=== PATIENT | male | born 1985 | race American Indian/Alaskan Native ===

== ENCOUNTER 2019-09-01 14:23 | Emergency (ER) | payer SELFPAY ==
[2019-09-01 14:37] VITALS: BP 142/83
[2019-09-01] MEDS ORDERED: IPRATROPIUM/ALBUTEROL SULFATE 3 ML AMPUL.NEB IH ONE (14:38)
[2019-09-01] MEDS ORDERED: predniSONE 20 MG TAB PO ONE (14:38)
--- NOTE | 2019-09-01 14:38 | Emergency Department Report ---
Blank Doc - Documentation Documentation: 34-year-old male that presents with SOB and wheezing. Has been out of his ast hma medications. This initial assessment/diagnostic orders/clinical plan/treatment(s) is/are subject to change based on patient's health status, clinical progression and re- assessment by fellow clinical providers in the ED. Further treatment and workup at subsequent clinical providers discretion. Patient/guardians urged not to elope from the ED as their condition may be serious if not clinically assessed and managed. Initial orders include: 1- Patient sent to [facility] for further evaluation and treatment 2- breathing treatment/steroids
--- NOTE | 2019-09-01 16:00 | Emergency Department Report ---
ED Asthma HPI - General Chief Complaint: Adult Asthma Stated Complaint: MED REFILL/WILDER Time Seen by Provider: 09/01/19 14:37 Source: patient Mode of arrival: Ambulatory Limitations: No Limitations - History of Present Illness Initial Comments: Mr. Hudson is a 34-year-old male who has history of asthma who requests medication refill. He recently lost his job. Consequently he does not have health insurance. He is unable to see his primary care physician without health insurance. He requests refill of albuterol nebulizer solution, Symbicort. He also has had nasal congestion aa for the past 3 days. He denies shortness of breath or wheezing at this time. He has had these symptoms intermittently. MD Complaint: "asthma attack" -: Gradual, week(s) (several weeks) Asthma History: history of frequent attac, history of prior ED visit Severity: mild Context: ran out of meds Associated Symptoms: other (nasal congestion) - Related Data Previous Rx's Medication Instructions Recorded Last Taken Type ALBUTEROL Inhaler (OR & NICU) 2 puff IH QID PRN #1 device 09/01/19 Unknown Rx [ProAir HFA Inhaler] ALBUTEROL NEB's [Proventil 0.083% 1 neb IH Q6H PRN #1 box 09/01/19 Unknown Rx NEBS] Budesonide/Formoterol Fumarate 2 inh IH BID #1 hfa.aer.ad 09/01/19 Unknown Rx [Symbicort 160-4.5 Mcg Inhaler] Loratadine 10 mg PO DAILY 30 Days #30 capsule 09/01/19 Unknown Rx predniSONE [Deltasone] 3 tab PO QDAY 4 Days #12 tab 09/01/19 Unknown Rx Allergies Allergy/AdvReac Type Severity Reaction Status Date / Time No Known Allergies Allergy Unverified 09/01/19 14:38 ED Review of Systems ROS: Stated complaint: MED REFILL/WILDER Other details as noted in HPI Comment: All other systems reviewed and negative Constitutional: malaise. denies: fever ENT: congestion Respiratory: shortness of breath, wheezing Cardiovascular: denies: chest pain ED Past Medical Hx - Past Medical History Previous Medical History?: Yes Hx Hypertension: Yes Hx Asthma: Yes - Surgical History Past Surgical History?: No - Social History Smoking Status: Never Smoker Substance Use Type: None - Medications Home Medications: Home Medications Medication Instructions Recorded Confirmed Last Taken Type ALBUTEROL Inhaler (OR & NICU) 2 puff IH QID PRN #1 device 09/01/19 Unknown Rx [ProAir HFA Inhaler] ALBUTEROL NEB's [Proventil 0.083% 1 neb IH Q6H PRN #1 box 09/01/19 Unknown Rx NEBS] Budesonide/Formoterol Fumarate 2 inh IH BID #1 hfa.aer.ad 09/01/19 Unknown Rx [Symbicort 160-4.5 Mcg Inhaler] Loratadine 10 mg PO DAILY 30 Days #30 capsule 09/01/19 Unknown Rx predniSONE [Deltasone] 3 tab PO QDAY 4 Days #12 tab 09/01/19 Unknown Rx ED Physical Exam - General Limitations: No Limitations General appearance: alert, in no apparent distress, other (appears well speaking talkative full word sentences without difficulty ) - Head Head exam: Present: atraumatic, normocephalic - Eye Eye exam: Present: normal appearance - ENT ENT exam: Present: mucous membranes moist - Neck Neck exam: Present: normal inspection, full ROM - Respiratory Respiratory exam: Present: normal lung sounds bilaterally. Absent: respiratory distress, wheezes, rales, rhonchi - Cardiovascular Cardiovascular Exam: Present: regular rate, normal rhythm, normal heart sounds. Absent: systolic murmur, diastolic murmur, rubs, gallop - GI/Abdominal GI/Abdominal exam: Present: soft, normal bowel sounds. Absent: distended, tenderness, guarding, rebound - Rectal Rectal exam: Present: deferred - Extremities Exam Extremities exam: Present: normal inspection - Back Exam Back exam: Present: normal inspection - Neurological Exam Neurological exam: Present: alert, oriented X3 - Psychiatric Psychiatric exam: Present: normal affect, normal mood - Skin Skin exam: Present: warm, dry, intact, normal color. Absent: rash ED Course Vital Signs 09/01/19 14:29 Temperature 98.4 F Pulse Rate 72 Respiratory 16 Rate Blood Pressure 142/83 O2 Sat by Pulse 97 Oximetry ED Medical Decision Making - Medical Decision Making mild aspirin exacerbation, refills of albuterol nebulizer solution, albuterol MDI and Symbicort provided Nasal congestion attributed to URI versus allergic rhinitis prescribed loratadine Critical care attestation.: If time is entered above; I have spent that time in minutes in the direct care of this critically ill patient, excluding procedure time. ED Disposition Clinical Impression: Asthma exacerbation, Sinus congestion Disposition: DC-01 TO HOME OR SELFCARE Is pt being admited?: No Does the pt Need Aspirin: No Condition: Stable Instructions: Asthma (ED) Prescriptions: predniSONE [Deltasone] 3 tab PO QDAY 4 Days #12 tab Loratadine 10 mg PO DAILY 30 Days #30 capsule ALBUTEROL Inhaler (OR & NICU) [ProAir HFA Inhaler] 2 puff IH QID PRN #1 device PRN Reason: Shortness Of Breath ALBUTEROL NEB's [Proventil 0.083% NEBS] 1 neb IH Q6H PRN #1 box PRN Reason: shortness of breath/wheezing Budesonide/Formoterol Fumarate [Symbicort 160-4.5 Mcg Inhaler] 2 inh IH BID #1 hfa.aer.ad Referrals: [facility] [Outside] - 3-5 Days Forms: Work/School Release Form(ED)
== END 2019-09-01 18:36 | disposition home or self-care (01) ==
LOC: ED 14:23
DX: J45.901 Unspecified asthma with (acute) exacerbation (principal); I10 Essential (primary) hypertension; Z79.899 Other long term (current) drug therapy
CPT/HCPCS: 94644; 99283; J7512

== ENCOUNTER 2019-09-27 21:40 | Emergency (ER) | payer SELFPAY ==
[2019-09-27] MEDS ORDERED: IPRATROPIUM/ALBUTEROL SULFATE 3 ML AMPUL.NEB IH ONE (22:03)
[2019-09-27] MEDS ORDERED: predniSONE 20 MG TAB PO ONE (22:03)
--- NOTE | 2019-09-27 22:05 | Event Note ---
ED Screening Note Date of service: 09/27/19 Time: 22:01 ED Screening Note: This is a 34 y.o. M. that presents to the ER with cough, congestion, and rhinorrhea 4-5 days. PMH of asthma Patient states he ran out of inhaler, nebulizer solution, and prednisone. This initial assessment/diagnostic orders/clinical plan/treatment(s) is/are subject to change based on patients health status, clinical progression and re- assessment by fellow clinical providers in the ED. Further treatment and workup at subsequent clinical providers discretion. Patient/guardian urged not to elope from the ED as their condition may be serious if not clinically assessed and managed. Initial orders include: Duoneb Prednisone
[2019-09-28] MEDS ORDERED: ALBUTEROL 2.5 MG/3 ML NEBU IH ONE (01:28)
[2019-09-28] MEDS ORDERED: IPRATROPIUM 0.02% NEBU 2.5 ML IH ONE (01:28)
[2019-09-28] MEDS ORDERED: predniSONE 20 MG TAB PO ONE (01:28)
--- NOTE | 2019-09-28 01:34 | Emergency Department Report ---
HPI - General Chief Complaint: Adult Asthma Time Seen by Provider: 09/27/19 22:00 - HPI HPI: Room 29 The pt is a 34 y/o M p/w a cc of URI and asthma. 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 The pt states he's had a cold with his sxs including cough and rhinnorhea x 5 days. The pt states whenever he has an URI his asthma exacerbates. The pt states he's been wheezing x 5 days and doesnt have any asthma meds at home. Pt denies fever. + sick contacts at home c same sxs ED Past Medical Hx - Past Medical History Previous Medical History?: Yes Hx Hypertension: Yes Hx Asthma: Yes - Surgical History Past Surgical History?: No - Family History Family history: no significant - Social History Smoking Status: Current Every Day Smoker (11/29 ppd) Substance Use Type: Alcohol (occ) - Medications Home Medications: Home Medications Medication Instructions Recorded Confirmed Last Taken Type Budesonide/Formoterol Fumarate 2 inh IH BID #1 hfa.aer.ad 09/01/19 Unknown Rx [Symbicort 160-4.5 Mcg Inhaler] Loratadine 10 mg PO DAILY 30 Days #30 capsule 09/01/19 Unknown Rx predniSONE [Deltasone] 3 tab PO QDAY 4 Days #12 tab 09/01/19 Unknown Rx ALBUTEROL Inhaler (OR & NICU) 2 puff IH QID PRN #1 device 09/28/19 Unknown Rx [ProAir HFA Inhaler] ALBUTEROL NEB's [Proventil 0.083% 1 neb IH Q6H PRN #1 box 09/28/19 Unknown Rx NEBS] Prednisone [predniSONE 10 mg 10 mg PO .TAPER #1 tab.ds.pk 09/28/19 Unknown Rx (6-Day Pack, 21 Tabs)] ED Review of Systems ROS: Stated complaint: MED REFILL FOR ASTHMA Other details as noted in HPI Constitutional: denies: fever Eyes: denies: eye pain ENT: congestion Respiratory: cough, wheezing Physical Exam - Physical Exam Vital Signs: Vital Signs 09/27/19 21:51 Temperature 98.8 F Pulse Rate 64 Respiratory 18 Rate Blood Pressure 169/79 O2 Sat by Pulse 98 Oximetry Physical Exam: GEN: WD WN M sitting on chair in NAD HEENT: NCAT, EOMI NECK:Trachea midline, no stridor CV: rrr no m/r/g Pulm: faint wheezing bilaterally Neuro: GCS 15 SKIN: no diaphoresis MS: no evidence of acute injury ED Course Vital Signs 09/27/19 21:51 Temperature 98.8 F Pulse Rate 64 Respiratory 18 Rate Blood Pressure 169/79 O2 Sat by Pulse 98 Oximetry - Reevaluation(s) Reevaluation #1: 09/28/19 01:32 EST pt states he feels much better. lungs CTA B ED Medical Decision Making - Differential Diagnosis Asthma exacerbation, URI Critical care attestation.: If time is entered above; I have spent that time in minutes in the direct care of this critically ill patient, excluding procedure time. ED Disposition Clinical Impression: Acute asthma exacerbation, URI (upper respiratory infection) Disposition: TO HOME OR SELFCARE Is pt being admited?: No Does the pt Need Aspirin: No Condition: Stable Instructions: Asthma (ED) Prescriptions: Prednisone [predniSONE 10 mg (6-Day Pack, 21 Tabs)] 10 mg PO .TAPER #1 tab.ds.pk ALBUTEROL Inhaler (OR & NICU) [ProAir HFA Inhaler] 2 puff IH QID PRN #1 device PRN Reason: Shortness Of Breath ALBUTEROL NEB's [Proventil 0.083% NEBS] 1 neb IH Q6H PRN #1 box PRN Reason: shortness of breath/wheezing Referrals: PRIMARY CARE, [Primary Care Provider] - 3-5 Days [facility] [Outside] - 3-5 Days Time of Disposition: 01:33
[2019-09-28 01:51] VITALS: BP 168/66
== END 2019-09-28 01:49 | disposition home or self-care (01) ==
LOC: ED 21:40
DX: J45.901 Unspecified asthma with (acute) exacerbation (principal); J06.9 Acute upper respiratory infection, unspecified; I10 Essential (primary) hypertension; F17.200 Nicotine dependence, unspecified, uncomplicated; Z79.899 Other long term (current) drug therapy
CPT/HCPCS: 94640; 99282; J7512; 94644